=== PATIENT | male | born 1995 | race Caucasian/White ===

== ENCOUNTER 2021-02-07 10:26 | Outpatient (REF) | payer OTHER, SELFPAY ==
--- NOTE | ~2021-02-07 | XR_ITS ---
EXAMINATION: XR HIP, RIGHT CLINICAL INFORMATION: M25.551 - Pain in right hip COMPARISON: None TECHNIQUE: Two views of the right hip. FINDINGS: No fracture or dislocation. No joint narrowing or erosive change or visible chondrocalcinosis. Bony mineralization appears normal. There is no destructive process or periostitis. The right SI joint and pubis are unremarkable. XR/XR hip RT min 2V IMPRESSION: Normal right hip.
== END 2021-02-07 10:27 | disposition home or self-care (01) ==
LOC: HO.HMGCX 10:26
PROVIDERS: PCP Internal Medicine; Visit Provider Physician Assistant
DX: M25.551 Pain in right hip (principal)
CPT/HCPCS: 73502

== ENCOUNTER 2021-02-27 08:00 | Outpatient (RCR) | payer OTHER, SELFPAY ==
--- NOTE | 2021-02-16 09:57 | MHC.PT.EP ---
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 S/S consistent w/ lumbar dysfunction and pelvic asymmetry resulting in decreased tolerance of standing, sitting, and ambulating for duration, decreased tolerance for lifting heavy objects off of the ground, decreased ability to perform most of his job and traveling. Functional limitation mentioned above are secondary to global hip muscular weakness, lumbar hypermobility, postural dysfunction, LLD and pain. Patient is motivated with good rehab potential. Skilled PT will address impairments and functional limitations in order to achieve goals. Frequency and Duration: The patient will be seen 2x/wk for 5 wk Short Term Goals: initiate HEP I w/ evidence of compliance -1-2wk pt will be able to demonstrate proper standing posture using teach back method - 2wk pt will be able to ambulate/walk/stand w/ minimal to no pain. 3wk Senior Care Goals: pt will be able to lift objects off of the ground w/ minimal to no pain - 5wk pt will be able to travel or return to employment w/ minimal to no pain -5wk pt will score 4+/5 MMT for his global hip musculature - 5 wk Treatment Plan: Modalities to reduce pain, spasms and effusion. Manual therapy to restore motion and function. Therapeutic exercise to improve strength and flexibility. Neuromuscular re-education for posture and balance. Therapeutic activities to return to functional activities of daily living. Electronically signed by: Albaro King PT Please sign and return to therapist. Thank you for your referral.
--- NOTE | 2021-07-13 07:40 | MHC.PT.DC ---
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 encouraged him to call as needed if any issues arose. 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 S/S consistent w/ lumbar dysfunction and pelvic asymmetry resulting in decreased tolerance of standing, sitting, and ambulating for duration, decreased tolerance for lifting heavy objects off of the ground, decreased ability to perform most of his job and traveling. Functional limitation mentioned above are secondary to global hip muscular weakness, lumbar hypermobility, postural dysfunction, LLD and pain. Patient is motivated with good rehab potential. Skilled PT will address impairments and functional limitations in order to achieve goals. Electronically signed by: Albaro King, PT Please sign and return to therapist. Thank you for your referral.
== END 2021-04-14 08:00 | disposition home or self-care (01) ==
LOC: HO.PTCHIC 08:00
PROVIDERS: PCP Internal Medicine; Visit Provider Physician Assistant
DX: M51.9 Unspecified thoracic, thoracolumbar and lumbosacral intervertebral disc disorder (principal); M70.60 Trochanteric bursitis, unspecified hip
CPT/HCPCS: 97110; 97161

== ENCOUNTER 2021-07-04 08:24 | Outpatient (REF) | payer OTHER, SELFPAY | END 2021-07-04 08:25 | disposition home or self-care (01) | LOC: HO.LAB 08:24 | PROVIDERS: Visit Provider Internal Medicine | DX: Z13.89 Encounter for screening for other disorder (principal) | CPT/HCPCS: C9803 ==

== ENCOUNTER 2021-08-23 10:10 | Outpatient (REF) | payer OTHER, SELFPAY ==
[2021-08-23 11:59] LABS: Alanine Aminotransferase 13 U/L (0-40); Albumin Level 4.6 g/dL (3.5-5.0); Alkaline Phosphatase 57 U/L (39-117); Anion Gap 8 (12-20); Aspartate Amino Transferase 21 U/L (5-37); Bilirubin Total 0.5 mg/dL (0.0-1.0); Blood Urea Nitrogen 18 mg/dL (9-16); Calcium 9.2 mg/dL (8.4-10.2); Carbon Dioxide 31 mmol/L (22-29); Chloride 103 mmol/L (96-108); Cholesterol 129 mg/dL; Estimated Glomerular Filt Rate > 60; Glucose Fasting 87 mg/dL (60-99); HDL Cholesterol 46 mg/dL; LDL Cholesterol Calculated 74 mg/dl; Potassium 4.3 mmol/L (3.3-5.1); Sodium 138 mmol/L (135-145); Triglycerides 47 mg/dL
[2021-08-23 12:13] LABS: TSH reflex Free T4 0.83 uIU/mL (0.32-4.0)
[2021-08-23 13:51] LABS: Appearance Urine HAZY; Color Urine YELLOW; Glucose Urine UA NEG (NEG); Leukocyte Esterase Urine NEG (NEG); Nitrite Urine NEG (NEG); PH 6.5 (5.0-8.0); Urine Blood NEG (NEG); Urine Ketones NEG (NEG); Urine Protein NEG (NEG-TRACE)
== END 2021-08-23 10:11 | disposition home or self-care (01) ==
LOC: HO.HMGCLDS 10:10
PROVIDERS: Visit Provider Nurse Practitioner Family
DX: Z00.00 Encounter for general adult medical examination without abnormal findings (principal)
CPT/HCPCS: 36415; 80053; 80061; 81003; 84443

== ENCOUNTER 2021-08-27 09:19 | Outpatient (REF) | payer OTHER, SELFPAY ==
--- NOTE | ~2021-08-27 | XR_ITS ---
EXAMINATION: XR LUMBOSACRAL SPINE CLINICAL INFORMATION: Right hip pain. COMPARISON: None TECHNIQUE: Three views of the lumbosacral spine. FINDINGS: The vertebral bodies and posterior elements are normal. The disc spaces are preserved and the vertebral alignment is normal. The paraspinal soft tissues are normal. XR/XR lumbar spine 2-3V IMPRESSION: Unremarkable examination.
== END 2021-08-27 09:20 | disposition home or self-care (01) ==
LOC: HO.HMGCX 09:19
PROVIDERS: PCP Nurse Practitioner Family; Visit Provider Nurse Practitioner Family
DX: M25.551 Pain in right hip (principal); M47.816 Spondylosis without myelopathy or radiculopathy, lumbar region
CPT/HCPCS: 72100

== ENCOUNTER 2021-09-06 09:00 | Outpatient (RCR) | payer OTHER, SELFPAY ==
--- NOTE | 2021-06-14 10:14 | MHC.PT.EP ---
[facility] [place] Office [place] Office [address] [phone] F: [phone] F: [phone] F: [phone] F: [phone] Physical Therapy Plan of Care Date of Evaluation: Date of Surgery: n/a Diagnosis: spondylosis lumbar spine. Assessment: Patient is a 25 year old R handed male who presents with s/s consistent with spondylosis of lumbar spine. 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 Patient past medical history is fairly unremarkable. Current impairments include pain, posture, ROM, strength, activity tolerance and functional mobility. Functional limitations include decreased ability to stand, walk, run, lift, carry. Patient is motivated with good rehab potential. Skilled PT will address impairments and functional limitations in order to achieve goals. Frequency and Duration: The patient will be seen 2x/week for 5 weeks Short Term Goals: I with HEP -2 weeks symmetrical hip flex/HS flexibility - 3 weeks Skein Bleacher Goals: hip abd/ext strength 4+/5 grossly - 5 weeks OSwestry 10% or less - 5 weeks lumbar AROM 100% and pain free - 5 weeks pain free daily activities - 5 weeks Treatment Plan: Modalities to reduce pain, spasms and effusion. Manual therapy to restore motion and function. Therapeutic exercise to improve strength and flexibility. Neuromuscular re-education for posture and balance. Therapeutic activities to return to functional activities of daily living. Electronically signed by: Albaro King, PT Please sign and return to therapist. Thank you for your referral.
--- NOTE | 2021-09-06 16:31 | MHC.PT.DC ---
[facility] [place] Office [place] Office [place] Office [address] [phone] F: [phone] F: [phone] F: [phone] F: [phone] Physical Therapy Discharge Report Diagnosis: spondylosis lumbar spine. Date of Surgery: n/a Date of Evaluation: 06/13/21 Date of Discharge: 09/06/21 Treatments to Date: 12 Cancellations to Date: 0 No Shows to Date: 0 Discharge Status: Independent with HEP Recommend MD Follow-up Discharge Summary: Albaro has been an active and motivated participant in his therapy in and out of the clinic. He has been instructed in and is independent with a comprehensive lumbopelvic stability and mobility program and is improved of his R anterior hip pain. Albaro relates his pain to his work tasks and specifically his duty gear; he is able to progress to higher level stability and dynamic activities in the clinic however he regresses significantly after he performs his job tasks and wears his duty gear; He has not met all of his therapeutic goals due to this constant re-irritation of his symptoms. Golden outcome measure regressed by 4% from evaluation. Electronically signed by: Robert Castro PT. Please sign and return to therapist. Thank you for your referral.
== END 2021-09-06 16:34 | disposition home or self-care (01) ==
LOC: HO.PTCHIC 09:00
PROVIDERS: PCP Internal Medicine; Visit Provider Nurse Practitioner Family
DX: M79.18 Myalgia, other site (principal); M47.816 Spondylosis without myelopathy or radiculopathy, lumbar region
CPT/HCPCS: 97014; 97110; 97140; 97162; 97530

== ENCOUNTER → 2022-05-27 10:49 | Outpatient (BNVA) | payer OTHER, SELFPAY | PROVIDERS: PCP Nurse Practitioner Family; Visit Provider Orthopaedic Surgery | DX: S73.191A Other sprain of right hip, initial encounter (principal); M25.551 Pain in right hip | CPT/HCPCS: 99202 ==

== ENCOUNTER 2022-07-05 09:00 | Outpatient (RCR) | payer OTHER, SELFPAY ==
--- NOTE | 2022-04-18 18:02 | MHC.PT.EP ---
[facility] [place] Office [place] Office [place] Office [address] [phone] F: [phone] F: [phone] F: [phone] F: [phone] Physical Therapy Plan of Care Date of Evaluation: Date of Surgery: Diagnosis: R hip pain. 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 Pt is deemed an appropriate candidate to receive skilled PT in order to address her physical limitations to improve her functional ability. Frequency and Duration: The patient will be seen 2 x / wk x 5 wks. Short Term Goals: Initiate HEP. Improve baseline pain to < 4/10, initial 7/10. Career Technical Counselor Goals: I with home program. Pt will be able to walk 1 mile with at most a little bit of difficulty; initial: quite a bit of difficulty. Pt will be able to ascend and descend 1 flight of stairs with managed symptoms; initial: quite a bit of difficulty. Improve R his ER MMT by at least 1/2 MMT grade: initial: 4/5 and painful. Ambulates with symmetrical gait. Initial: decreased R hip extension at terminal stance, decreased L stp length. Treatment Plan: Modalities to reduce pain, spasms and effusion. Manual therapy to restore motion and function. Therapeutic exercise to improve strength and flexibility. Neuromuscular re-education for posture and balance. Therapeutic activities to return to functional activities of daily living. Electronically signed by: Robert Castro PT. Please sign and return to therapist. Thank you for your referral.
--- NOTE | 2022-07-05 12:52 | MHC.PT.DC ---
[facility] [place] Office [place] Office [place] Office [address] [phone] F: [phone] F: [phone] F: [phone] F: [phone] Physical Therapy Discharge Report Diagnosis: R hip pain. Date of Surgery: Date of Evaluation: 04/18/22 Date of Discharge: 07/05/22 Treatments to Date: 15 Cancellations to Date: No Shows to Date: Discharge Status: Achieved Goals Improved Function Independent with HEP Recommend MD Follow-up Discharge Summary: Albaro presents today for his discharge visit. He has been an active and motivated participant in his therapy in and out of the clinic and is in agreement with DC at this time as he has met his therapeutic goals and is I with a comprehensive home program for hip and lumbar strengthening and mobility. NOTE: Albaro presented initially to PT with R hip pain and LBP which limited his tolerance. Through his management he was granted work restrictions one of which was permission to remove his duty belt and vest which he reports exacerbates his symptoms; this greatly improved his LBP and accounts for some of his functional improvements. Though his hip strength has improved and he has met his reasonable therapeutic goals for this point of care he does persist with R hip pain which he continues to report limited tolerance for standing, and sitting and walking for duration, engaging in intimate relations, as well as age appropriate exercise and recreation. LEFI outcome measure improved from to 49. Electronically signed by: Robert Castro PT. Please sign and return to therapist. Thank you for your referral.
== END 2022-07-05 12:51 | disposition home or self-care (01) ==
LOC: HO.PTCHIC 09:00
PROVIDERS: PCP Nurse Practitioner Family; Visit Provider Nurse Practitioner Family
DX: M25.551 Pain in right hip (principal)
CPT/HCPCS: 97110; 97161; 97530

== ENCOUNTER 2022-07-11 13:14 | Outpatient (REF) | payer OTHER, SELFPAY ==
--- NOTE | ~2022-07-11 | MR_ITS ---
EXAMINATION: MR HIP WITH CONTRAST, RIGHT CLINICAL INFORMATION: Right hip pain, clicking. Patient reports symptoms for one year. Patient reports no prior right hip surgery. COMPARISON: X-ray 02/07/2021. Outside MRI images 02/13/2022. TECHNIQUE: MRI of the right hip was performed after the intra-articular administration of a dilute gadolinium-containing solution on a high-field scanner. FINDINGS: BONE/JOINTS: No evidence of acute fracture, avascular necrosis or stress reaction. No significant arthropathy seen. Ligamentum teres appears unremarkable. No cystic foci or bony hypertrophy in the anterior femoral head and neck junction. Alpha angle measures 46 degrees. Acetabular depth is normal. LABRUM: There is T2 bright signal/contrast extending through the base of the anterosuperior labrum, images 5:9, 9:6, 7:8. Findings compatible with a tear. This correlates with the abnormal signal seen on the previous MRI. There is increased signal, ill-definition of the anterosuperior labrum otherwise, as seen on images 5:11-13, which could represent degeneration, fraying/tear, and contrast imbibing into the substance of the labrum. MUSCLES/TENDONS: There is increased signal in the rectus femoris muscle, iliopsoas muscle tracking along the iliopsoas tendon, likely related to the arthrogram procedure. The tendons otherwise appear intact. No evidence of significant muscle atrophy, strain or tear. No trochanteric bursitis. MISCELLANEOUS: Subcentimeter right groin lymph nodes. No acute findings in the intrapelvic structures. MR/MR hip RT w con IMPRESSION: 1. Abnormal findings indicative of an anterosuperior labral tear. Abnormal findings in the subjacent anterosuperior labrum, could reflect degeneration, fraying/tear, as detailed above. 2. Signal changes in the anterior muscles of the right hip, probably related to the arthrogram procedure.
--- NOTE | ~2022-07-11 | FL_ITS ---
EXAMINATION: FL FLUOROSCOPIC GUIDED HIP INJECTION, RIGHT CLINICAL INFORMATION: Right hip pain. Clicking. COMPARISON: Radiographs right hip 02/07/2021. TECHNIQUE: Proper informed consent is obtained from the patient after discussion of the procedure, potential risks and complications, and alternatives including declining the procedure today. Patient was given an opportunity for questions. The patient appeared to understand. The patient consented to the procedure and signed the consent form. Timeout performed. Skin is prepped and draped. Local anesthesia is provided using 6 mL lidocaine 1%. Under fluoroscopic guidance, a 22-gauge needle was positioned from an anterior approach. Initial contrast injection showed communication with the iliopsoas tendon sheath. Needle was repositioned and repeat injection showed intracapsular distribution of contrast. Subsequently, the patient received an injection consisting of: -1 mL DepoMedrol 40 mg -3 mL Lidocaine 1% -3 mL Marcaine 0.25% -3 mL Gadovist 0.2% The patient tolerated the procedure well and had no immediate complication. Sterile dressing was placed and home instructions reviewed with the patient. MRI right hip performed following the arthrogram, separate report Fluoroscopy time: 1.0 minutes DAP: 5.713 Gycm2 Images: 6 FL/FL arthrogram hip RT IMPRESSION: -Status post fluoroscopic guided right hip injection of steroid and anesthetic.
== END 2022-07-11 13:15 | disposition home or self-care (01) ==
LOC: HO.XRAY 13:14
PROVIDERS: PCP Nurse Practitioner Family; Visit Provider Orthopaedic Surgery
DX: S73.191A Other sprain of right hip, initial encounter (principal)
CPT/HCPCS: 27093; 73525; 73722; A9585

== ENCOUNTER → 2022-07-19 10:17 | Outpatient (BNVA) | payer OTHER, SELFPAY | PROVIDERS: PCP Nurse Practitioner Family; Visit Provider Orthopaedic Surgery | DX: S73.191D Other sprain of right hip, subsequent encounter (principal) | CPT/HCPCS: 99212 ==

== ENCOUNTER 2023-02-27 12:48 | Outpatient (AMB) | payer OTHER, SELFPAY ==
[2023-02-27 13:03] VITALS: BP 100/68; PULSE 62; O2SAT 99; BMI 24.3
--- NOTE | 2023-02-27 13:03 | A.OFFPC_ITS ---
Vital Signs 02/27/23 13:03 Height 5 ft 6 in Weight 150 lb 6 oz BMI 24.3 BP 100/68 Blood Pressure Location Rt brachial Position Sitting Pulse 62 Pulse Source Pulse Oximeter Pulse Oximetry (%) 99 Oxygen Delivery Method Room Air Intake Visit Reasons: 3m follow up Allergies Seasonal Allergies Allergy (Mild, Verified 02/27/23 13:05) watery eyes, sneezing Medication List - Last Reconciled 02/27/23 by REJI Martin cyclobenzaprine 10 mg PO BID PRN 15 days diclofenac sodium 50 mg PO Q12H PRN 30 days naproxen (EC-Naprosyn) 500 mg PO BID Tobacco use date assessed: 02/27/23 Dental Screening Dental Screen Date: 02/27/23 Did you have a dental visit in the last 12 months?: Yes Did you have a dental problem in the last 6 months where you did not have access to dental care?: No Was dental information given to patient?: Patient has dentist HPI 3m follow up HPI Details Right hip pain: Pt is following up with ortho due to labral tear and acetabular impigement of right hip. 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 Pt is planning to try swimming and biking. Pt has an upcoming appointment with speech and hearing due to tinnitus and hearing loss. Pt also c/o bilat shoulder pain, right>left. Will order XRs. Denies fever, chills, and dizziness. PFSH Family History Father Substance use disorder Maternal Grandfather Substance use disorder Maternal Grandmother Substance use disorder Maternal Aunt Substance use disorder Maternal Uncle Substance use disorder Social History Housing: Apartment Patient Tobacco Use Status: Never used Tobacco e-Cigarette/Vaping Use: Never Used Second Hand Smoke Exposure: Yes service: Yes Current occupational status: employed Current occupation: [employer] Current occupational exposures/hazards: Yes Cognitive needs: No Hearing needs: No Vision needs: No Questionnaire Thrive Questionnaire Date Thrive assessed: 11/27/22 STORM-7 AMB Questionnaire STORM-7 Date STORM - 7 assessed: 11/27/22 Source: Developed by Drs. Pan Cassidy, Oralia Hawthorne, Tad Izaguirre and colleagues, with an educational wing from [employer]. Review of Systems Const Reports as per HPI Physical exam (Primary Care) Vital Signs: Last Vital Signs Pulse 62 02/27/23 13:03 BP 100/68 02/27/23 13:03 Pulse Ox 99 02/27/23 13:03 Oxygen Delivery Method Room Air 02/27/23 13:03 BMI result Body Mass Index 24.3 Tobacco/Smoking Status: Tobacco use Status Tobacco use date assessed 02/27/23 02/27/23 13:07 Patient Tobacco Use Status Never used Tobacco 02/27/23 13:07 e-Cigarette/Vaping Use Never Used 02/27/23 13:07 Thrive Assessment: Date of Thrive Assessment Date Thrive assessed 11/27/22 02/27/23 13:07 Const General: cooperative Orientation/consciousness: patient oriented x3 Resp Effort & Inspection: normal respiratory effort Auscultation: clear to auscultation bilaterally Cardio Rate: regular rate Rhythm: regular rhythm Heart sounds: S1 normal heart sound present and S2 normal heart sound present Neuro General: patient oriented x3 Extrem Other: bilat shoulders: - taylor, - neers, - jobes Psych Appearance: grossly normal Mental Status: mental status grossly normal Speech and movement: Normal speech and movement present Affect: normal affect Attitude: cooperative Thought process: Normal thought process present Thought content: Normal thought content present Insight: Good insight present (Psych) Judgement: Good judgement present (Psych) Assessment and Plan Assessment & Plan (1) Bilateral shoulder pain: Code(s): M25.511 - Pain in right shoulder; M25.512 - Pain in left shoulder (2) Labral tear of right hip joint: Code(s): S73.191A - Other sprain of right hip, initial encounter (3) Femoral acetabular impingement: Code(s): M25.859 - Other specified joint disorders, unspecified hip (4) Right hip pain: Code(s): M25.551 - Pain in right hip (5) Tinnitus: Code(s): H93.19 - Tinnitus, unspecified ear (6) Hearing loss: Code(s): H91.90 - Unspecified hearing loss, unspecified ear Plan The patient agreed to the use of a medical support specialist for this encounter. Scribed for GIANFRANCO Bowden-WENDY by Zamzam Faith medical support specialist, on 02/27/2023 at 13:10 EST. Orders: Orders XR shoulder LT min 2V Today M25.511 - Pain in right shoulder, M25.512 - Pain in left shoulder XR shoulder RT min 2V Today M25.511 - Pain in right shoulder, M25.512 - Pain in left shoulder Coding Level of Care Code Est Pt Level 3 (15917) Diagnoses Bilateral shoulder pain M25.511; M25.512 Labral tear of right hip joint S73.191A Femoral acetabular impingement M25.859 Right hip pain M25.551 Tinnitus H93.19 Hearing loss H91.90
== END 2023-02-27 13:28 | disposition home or self-care (01) ==
PROVIDERS: PCP Nurse Practitioner Family; Visit Provider Nurse Practitioner Family
DX: M25.511 Pain in right shoulder (principal); M25.512 Pain in left shoulder; S73.191A Other sprain of right hip, initial encounter; M25.859 Other specified joint disorders, unspecified hip; M25.551 Pain in right hip; H93.19 Tinnitus, unspecified ear; H91.90 Unspecified hearing loss, unspecified ear
CPT/HCPCS: 99213

== ENCOUNTER 2023-02-27 13:29 | Outpatient (REF) | payer OTHER, SELFPAY ==
--- NOTE | ~2023-02-27 | XR_ITS ---
EXAMINATION: XR SHOULDER, BILATERAL CLINICAL INDICATION: Pain. COMPARISON: None available. TECHNIQUE: 4 views left shoulder. 4 views right shoulder. FINDINGS: LEFT SHOULDER: 4 views of left shoulder do not demonstrate an acute finding. There is no fracture or dislocation. No bony erosion or osteopenia. No significant degeneration is seen. RIGHT SHOULDER: 4 views of right shoulder again show no suspicious finding. No fracture or dislocation. No bony erosion or osteopenia. No degeneration. XR/XR shoulder RT min 2V IMPRESSION: No suspicious bony finding in the shoulders.
--- NOTE | ~2023-02-27 | XR_ITS ---
EXAMINATION: XR SHOULDER, BILATERAL CLINICAL INDICATION: Pain. COMPARISON: None available. TECHNIQUE: 4 views left shoulder. 4 views right shoulder. FINDINGS: LEFT SHOULDER: 4 views of left shoulder do not demonstrate an acute finding. There is no fracture or dislocation. No bony erosion or osteopenia. No significant degeneration is seen. RIGHT SHOULDER: 4 views of right shoulder again show no suspicious finding. No fracture or dislocation. No bony erosion or osteopenia. No degeneration. XR/XR shoulder LT min 2V IMPRESSION: No suspicious bony finding in the shoulders.
[2023-02-27 15:53] LABS: MANUAL DIFF FLAG NO
[2023-02-27 16:21] LABS: Basophils Absolute Auto 0.1 X10*3/uL (0.0-0.2); Basophils Percent Auto 1.1 % (0-2); Eosinophils Absolute Auto 0.1 X10*3/uL (0.0-0.4); Eosinophils Percent Auto 1.1 % (0-4); Hematocrit 44.3 % (42.0-52.0); Hemoglobin 15.3 g/dl (14.0-18.0); Imm Gran Abs Auto 0.01 X10*3/uL (0.00-0.03); Imm Gran Pct Auto 0.2 % (0.0-0.4); Lymphocytes Absolute Auto 2.6 X10*3/uL (1.2-4.9); Lymphocytes Percent Auto 39.3 % (20-40); Mean Corpuscular HGB Conc 34.5 g/dl (31.0-36.0); Mean Corpuscular Hemoglobin 30.4 pg (27.0-33.0); Mean Corpuscular Volume 88.1 fL (80.0-98.0); Mean Platelet Volume 9.8 fL (9.4-12.4); Monocytes Absolute Auto 0.5 X10*3/uL (0.1-1.2); Monocytes Percent Auto 7.9 % (2-11); Neutrophils Absolute Auto 3.3 x10*3/uL (2.0-8.3); Neutrophils Percent Auto 50.4 % (45-73); Platelet Count 297 X10*3/uL (160-400); Red Blood Count 5.03 X10*6/uL (4.60-5.80); Red Cell Distribution Width 12.2 % (11.0-16.0); White Blood Count 6.5 X10*3/uL (4.8-10.8)
[2023-02-27 16:23] LABS: Alanine Aminotransferase 9 U/L (0-40); Albumin Level 4.7 g/dL (3.5-5.0); Alkaline Phosphatase 65 U/L (39-117); Anion Gap 11 (12-20); Aspartate Amino Transferase 17 U/L (5-37); Bilirubin Total 0.5 mg/dL (0.0-1.0); Blood Urea Nitrogen 13 mg/dL (9-16); Calcium 9.6 mg/dL (8.4-10.2); Carbon Dioxide 29 mmol/L (22-29); Chloride 105 mmol/L (96-108); Cholesterol 160 mg/dL (<200); Estimated Glomerular Filt Rate > 60; Glucose Fasting 85 mg/dL (60-99); HDL Cholesterol 43 mg/dL (>40); LDL Cholesterol Calculated 103 mg/dL (<100); Potassium 4.1 mmol/L (3.3-5.1); Sodium 141 mmol/L (135-145); Total Protein 7.4 g/dL (6.5-8.0); Triglycerides 70 mg/dL (<150)
[2023-02-27 16:27] LABS: Appearance Urine Clear; Color Urine Yellow; Glucose Urine UA Negative (Negative); Leukocyte Esterase Urine Negative (Negative); Nitrite Urine Negative (Negative); PH 6.5 (5.0-9.0); Specific Gravity - Urine 1.025 (1.005-1.025); Urine Blood Negative (Negative); Urine Ketones Negative (Negative); Urine Protein Negative (Neg-Trace)
[2023-02-27 16:40] LABS: TSH reflex Free T4 0.82 uIU/mL (0.32-4.0)
== END 2023-02-27 13:30 | disposition home or self-care (01) ==
LOC: HO.HMGCX 13:29
PROVIDERS: PCP Nurse Practitioner Family; Visit Provider Nurse Practitioner Family
DX: M25.511 Pain in right shoulder (principal); M25.512 Pain in left shoulder; Z00.00 Encounter for general adult medical examination without abnormal findings
CPT/HCPCS: 36415; 73030; 80053; 80061; 81003; 84443; 85025

== ENCOUNTER 2023-03-12 10:17 | Outpatient (REF) | payer OTHER, SELFPAY | END 2023-03-12 10:18 | disposition home or self-care (01) | LOC: HO.SH 10:17 | PROVIDERS: Visit Provider Nurse Practitioner Family | DX: Z01.118 Encounter for examination of ears and hearing with other abnormal findings (principal); H93.293 Other abnormal auditory perceptions, bilateral | CPT/HCPCS: 92557; 92567; 92588 ==

== ENCOUNTER 2023-07-28 15:50 | Outpatient (AMB) | payer OTHER, SELFPAY ==
--- NOTE | 2023-07-28 15:57 | MHC.PC.OV ---
Vital Signs 07/28/23 15:58 Height 5 ft 6 in Weight 145 lb BMI 23.4 BP 112/70 Blood Pressure Location Lt brachial Position Sitting Pulse 65 Pulse Source Pulse Oximeter Pulse Oximetry (%) 97 Oxygen Delivery Method Room Air Intake Visit Reasons: 3 mth follow up Intake Note: Pt is here to follow for shoulder pain Allergies Seasonal Allergies Allergy (Mild, Verified 07/28/23 16:00) watery eyes, sneezing Tobacco use date assessed: 07/28/23 Dental Screening Dental Screen Date: 07/28/23 Did you have a dental visit in the last 12 months?: No Did you have a dental problem in the last 6 months where you did not have access to dental care?: No Was dental information given to patient?: Patient has dentist HPI 3 mth follow up HPI Details ? IBS-C+D. Reports a few months ago developing diarrhea after eating. Pt further reported cramping, after eating, then immediately run to the bathroom. He then reports his symptoms switched to more of a constipation. ? IBS-C+D, will have him start citrucel. Pt reports less frequent cramps after eating, but now still more constipated. Pt reports he usually has a BM everyday. Denies any fevers, chills, N/V. #2 in 2019, pt reports he was stationed in [facility], developed ? jock itch after wearing heavy clothing in hot temperatures. Pt reports trying creams, was STD tested, nothing was found. He reports he still gets this inguinal rash. Will send ketoconazole. PFSH Family History Father Substance use disorder Maternal Grandfather Substance use disorder Maternal Grandmother Substance use disorder Maternal Aunt Substance use disorder Maternal Uncle Substance use disorder Social History Housing: Apartment Patient Tobacco Use Status: Never used Tobacco e-Cigarette/Vaping Use: Never Used Second Hand Smoke Exposure: Yes service: Yes Current occupational status: employed Current occupation: [employer] Current occupational exposures/hazards: Yes Cognitive needs: No Hearing needs: No Vision needs: No Questionnaire Thrive Questionnaire Date Thrive assessed: 11/27/22 STORM-7 AMB Questionnaire STORM-7 Date STORM - 7 assessed: 11/27/22 Source: Developed by Drs. Pan Cassidy, Oralia Hawthorne, Tad Izaguirre and colleagues, with an educational wing from [email or web address]. Review of Systems Const Reports as per HPI Physical exam (Primary Care) Vital Signs: Last Vital Signs Pulse 65 07/28/23 15:58 BP 112/70 07/28/23 15:58 Pulse Ox 97 07/28/23 15:58 Oxygen Delivery Method Room Air 07/28/23 15:58 BMI result Body Mass Index 23.4 Tobacco/Smoking Status: Tobacco use Status Tobacco use date assessed 07/28/23 07/28/23 16:02 Patient Tobacco Use Status Never used Tobacco 07/28/23 15:58 e-Cigarette/Vaping Use Never Used 07/28/23 15:58 Thrive Assessment: Date of Thrive Assessment Date Thrive assessed 11/27/22 07/28/23 15:58 Const General: cooperative Orientation/consciousness: patient oriented x3 Resp Effort & Inspection: normal respiratory effort Auscultation: clear to auscultation bilaterally Cardio Rate: regular rate Rhythm: regular rhythm Heart sounds: S1 normal heart sound present and S2 normal heart sound present GI Palpation (GI): Soft to palpation, nontender, no guarding and not rigid Auscultation: normal bowel sounds Skin Other: bilat inguinal region with macular erythema, tinea Neuro General: patient oriented x3 Psych Appearance: grossly normal Mental Status: mental status grossly normal Speech and movement: Normal speech and movement present Affect: normal affect Attitude: cooperative Thought process: Normal thought process present Thought content: Normal thought content present Insight: Good insight present (Psych) Judgement: Good judgement present (Psych) Assessment and Plan Assessment & Plan (1) Diarrhea: Code(s): R19.7 - Diarrhea, unspecified Plan: Recommended citrucel (2) Constipation: Code(s): K59.00 - Constipation, unspecified Plan: Recommended citrucel (3) Tinea cruris: Code(s): B35.6 - Tinea cruris Plan: Ketoconazole sent Plan The patient agreed to the use of a medical scientific officer for this encounter. Scribed for REJI Bowden by aminata Preciado scribe, on 07/28/2023 at 16:15 EST. Medications: New ketoconazole 2% 1 appl topical DAILY 60 grams 0RF Coding Level of Care Code Est Pt Level 3 (11931) Diagnoses Diarrhea R19.7 Constipation K59.00 Tinea cruris B35.6
[2023-07-28 15:58] VITALS: BP 112/70; PULSE 65; O2SAT 97; BMI 23.4
== END 2023-07-28 16:37 | disposition home or self-care (01) ==
PROVIDERS: PCP Nurse Practitioner Family; Visit Provider Nurse Practitioner Family
DX: R19.7 Diarrhea, unspecified (principal); K59.00 Constipation, unspecified; B35.6 Tinea cruris
CPT/HCPCS: 99213

== ENCOUNTER 2023-08-27 09:16 | Outpatient (AMB) | payer OTHER, SELFPAY ==
[2023-08-27 09:42] VITALS: BP 120/70; PULSE 70; TEMP 36.3; O2SAT 98; BMI 24.4
--- NOTE | 2023-08-27 09:42 | MHC.OFFWIV ---
Intake Vital Signs 08/27/23 09:42 Height 5 ft 6 in Weight 151 lb BMI 24.4 BP 120/70 Blood Pressure Location Lt brachial Position Sitting Pulse 70 Pulse Source Pulse Oximeter Temp 97.4 F Temp Source Temporal Artery Scan Pulse Oximetry (%) 98 Oxygen Delivery Method Room Air Intake Visit Reasons: EP WC strained neck @ work Needs note Intake Note: pt is here today for strained neck started today Patient Tobacco Use Status: Never used Tobacco Allergies Seasonal Allergies Allergy (Mild, Verified 08/27/23 09:42) watery eyes, sneezing Do you need a note to return to daycare/school/sports/work: Yes HPI HPI Comments History of Present Illness Details He presents with workmans comp injury He works at [employer] He said he has had an ongoing neck issue since 2020 and has not been formally seen for it he will occasionally tweek his neck and it occurs on both sides While at work today he was wearing his work hat and went to smooth over hat and felt a pulled muscle in the R side of his neck He said pain 10/10 sharp with movement Using hot compress, no medicine yet for it. No headaches, dizziness, vision changes, cold symptoms, CP or SOB PFSH Family History Father Substance use disorder Maternal Grandfather Substance use disorder Maternal Grandmother Substance use disorder Maternal Aunt Substance use disorder Maternal Uncle Substance use disorder Social History Housing: Apartment Patient Tobacco Use Status: Never used Tobacco e-Cigarette/Vaping Use: Never Used Second Hand Smoke Exposure: Yes service: Yes Current occupational status: employed Current occupation: [employer] Current occupational exposures/hazards: Yes Cognitive needs: No Hearing needs: No Vision needs: No Review of Systems Const Denies chills, Denies fever(s) and Denies headache(s) Eyes Denies blurry vision ENT Denies dizziness, Denies otalgia, Denies headache(s), Denies nasal congestion, Reports neck pain and Denies sore throat Card Denies chest pain Resp Denies cough Musc Reports neck pain Neuro Denies dizziness, Denies headache(s), Denies lack of coordination and Denies focal weakness Physical Exam Vital Signs: Last Vital Signs Temp 97.4 F 08/27/23 09:42 Pulse 70 08/27/23 09:42 BP 120/70 08/27/23 09:42 Pulse Ox 98 08/27/23 09:42 Oxygen Delivery Method Room Air 08/27/23 09:42 BMI result Body Mass Index 24.4 General: Non-toxic, NAD. Speaking full sentences. Skin: Warm dry throughout. No neck edema, rashes or erythema Eye: EOMI HENT: Airway patent. Uvula midline. No pharyngeal erythema or edema. No MANAGER STATE. Bilateral canals clear. TM non-erythematous, non-bulging. No TM perforation or hemotympanum noted. Neck: Tenderness to palpation R trapezius muscle with minimal L trapezius tenderness to palpation. Respiratory: CTA bilaterally. No wheezes, rales or rhonchi Cardiac: RRR. No murmur. R radial pulse intact MSK: Full ROM extremities. No tenderness to palpation of shoulder joint or RUE. 5/5 platinum and palladium kettle tender strength R hand Neurology: A/O. No aphasia or facial droop. Gait without abnormality Psych: Good mood and affect Assessment & Plan Assessment & Plan (1) Neck pain: Code(s): M54.2 - Cervicalgia Plan: Patient seen and evaluated. No trauma or indication of xray cold compress x 24 hours then switch to heat muscle relaxant; can cause lethargy. No alcohol or driving F/U with PT Call with concerns Patient gave verbal understanding and had no additional questions or concerns at time of discharge All questions answered Medications: New cyclobenzaprine 10 mg PO TID PRN 14 tabs 0RF muscle spasm Coding Level of Care Code Est Pt Level 3 (40149) Diagnoses Neck pain M54.2
== END 2023-08-27 10:11 | disposition home or self-care (01) ==
PROVIDERS: PCP Nurse Practitioner Family; Visit Provider Physician Assistant
DX: M54.2 Cervicalgia (principal)
CPT/HCPCS: 99213

== ENCOUNTER 2023-09-29 08:55 | Outpatient (AMB) | payer OTHER, SELFPAY ==
[2023-09-29 09:02] VITALS: BP 110/68; PULSE 76; TEMP 36.9; O2SAT 97; BMI 23.7
--- NOTE | 2023-09-29 09:02 | MHC.OFFWIV ---
Intake Vital Signs 09/29/23 09:02 Height 5 ft 6 in Weight 147 lb BMI 23.7 BP 110/68 Blood Pressure Location Lt brachial Position Sitting Pulse 76 Pulse Source Pulse Oximeter Temp 98.5 F Temp Source Oral Pulse Oximetry (%) 97 Oxygen Delivery Method Room Air Intake Visit Reasons: EP congestion cough sore throat Intake Note: pt is here for congestion cough sore throat started Friday night he also states he has some sinus pressure as well. Patient Tobacco Use Status: Never used Tobacco Allergies Seasonal Allergies Allergy (Mild, Verified 09/29/23 09:38) watery eyes, sneezing HPI HPI Comments History of Present Illness Details Patient presents to the walk in for 4 days cough, congestion, fatigue and 2 kids at home sick with same Denies fever, chest pain, shortness of breath, palpitations, syncope, weakness Denies headache, ear pain, sore throat. In the [employer], works as [employer] Family History Father Substance use disorder Maternal Grandfather Substance use disorder Maternal Grandmother Substance use disorder Maternal Aunt Substance use disorder Maternal Uncle Substance use disorder Social History Housing: Apartment Patient Tobacco Use Status: Never used Tobacco e-Cigarette/Vaping Use: Never Used Second Hand Smoke Exposure: Yes service: Yes Current occupational status: employed Current occupation: [employer] Current occupational exposures/hazards: Yes Cognitive needs: No Hearing needs: No Vision needs: No Review of Systems Const All systems reviewed & are unremarkable except as noted in HPI and below Physical Exam Vital Signs: Last Vital Signs Temp 98.5 F 09/29/23 09:02 Pulse 76 09/29/23 09:02 BP 110/68 09/29/23 09:02 Pulse Ox 97 09/29/23 09:02 Oxygen Delivery Method Room Air 09/29/23 09:02 BMI result Body Mass Index 23.7 General: awake, alert, oriented. Answers questions appropriately. Fully engaged in examination. Skin: warm, dry, intact HEENT: TMs intact bilaterally, no redness. Posterior pharynx without erythema or exudate. Sclera without icterus or injection. Cardiac: External chest normal in appearance. Respiratory: LSCTAB. Abdomen: without gross distension. Neurological: Oriented to person, place, time and situation. Thought process intact. Psychiatric: Appropriate mood and affect. Good judgment and insight. Results AMB Rapid Strep AMB Rapid Strep Negative Last Edit by Rose Rebolledo CMA on 09/29/23 09:51 Results Reviewed Results Reviewed: Laboratory Last Values Strep Scn Rapid Clinic Negative 09/29/23 09:50 Assessment & Plan Assessment & Plan (1) URI (upper respiratory infection): Code(s): J06.9 - Acute upper respiratory infection, unspecified Plan URI, no abx warranted. Rapid strep negative Benzonatate 100mg po bid as needed Rest, drink plenty of fluids, tylenol or motrin as needed. Work note provided Follow up with pcp or in clinic for any new or worsening symptoms. Orders: Orders AMB Rapid Strep Screen Today Basil Borden MD Z13.9 - Encounter for screening, unspecified Medications: New benzonatate 100 mg PO BID 10 days PRN 20 caps 0RF cough Latasha Maddox, DIRECTOR OF GLOBAL MARKETING, SERVICE [employer]IR[employer] Coding Level of Care Code Est Pt Level 3 (47862) Diagnoses URI (upper respiratory infection) J06.9
== END 2023-09-29 10:33 | disposition home or self-care (01) ==
PROVIDERS: PCP Nurse Practitioner Family; Visit Provider Registered Nurse Emergency
DX: J02.9 Acute pharyngitis, unspecified (principal)
CPT/HCPCS: 87880; 99213

== ENCOUNTER 2023-11-18 08:40 | Outpatient (AMB) | payer OTHER, SELFPAY ==
[2023-11-18 09:11] VITALS: BP 120/68; PULSE 71; TEMP 36.2; O2SAT 98; BMI 24.5
--- NOTE | 2023-11-18 09:11 | AM.OFFWIN_ITS ---
Intake Vital Signs 11/18/23 09:11 Height 5 ft 6 in Weight 152 lb BMI 24.5 BP 120/68 Blood Pressure Location Lt brachial Position Sitting Pulse 71 Pulse Source Pulse Oximeter Temp 97.2 F Temp Source Temporal Artery Scan Pulse Oximetry (%) 98 Oxygen Delivery Method Room Air Intake Visit Reasons: EP stomach Bug Intake Note: pt is here today for stomach bug started friday Patient Tobacco Use Status: Never used Tobacco Allergies Seasonal Allergies Allergy (Mild, Verified 11/18/23 09:47) watery eyes, sneezing Medication List - Last Reconciled 11/18/23 by Basil Borden MD cyclobenzaprine 10 mg PO BID PRN 15 days cyclobenzaprine 10 mg PO TID PRN diclofenac sodium 50 mg PO Q12H PRN 30 days ketoconazole 2% 1 appl topical DAILY naproxen (EC-Naprosyn) 500 mg PO BID Do you need a note to return to daycare/school/sports/work: Yes HPI EP stomach Bug HPI Details 27 yr old male presents to the office fo r a sick visit. Patient is active . Reporting symptoms of nausea, vomiting and diarrhea for the past few days. Travel to [place]. Young daughter is sick with similar complaints. No fevers or chills. Appetite is reduced. PFSH Family History Father Substance use disorder Maternal Grandfather Substance use disorder Maternal Grandmother Substance use disorder Maternal Aunt Substance use disorder Maternal Uncle Substance use disorder Social History Housing: Apartment Patient Tobacco Use Status: Never used Tobacco e-Cigarette/Vaping Use: Never Used Second Hand Smoke Exposure: Yes service: Yes Current occupational status: employed Current occupation: [employer] Current occupational exposures/hazards: Yes Cognitive needs: No Hearing needs: No Vision needs: No Physical Exam Vital Signs: Last Vital Signs Temp 97.2 F 11/18/23 09:11 Pulse 71 11/18/23 09:11 BP 120/68 11/18/23 09:11 Pulse Ox 98 11/18/23 09:11 Oxygen Delivery Method Room Air 11/18/23 09:11 BMI result Body Mass Index 24.5 Const General: cooperative and healthy appearing Nutritional Appearance: well nourished Orientation/consciousness: patient oriented x3 Limitations: no limitations HEENT Head: Yes normal to inspection Eyes General: appearance normal, both eyes and all related structures Neck Neck: Yes normal visual inspection Chest Chest palpation & inspection: normal palpation of entire chest wall Resp Effort & Inspection: normal respiratory effort Neuro General: patient oriented x3 Assessment & Plan Assessment & Plan (1) Gastroenteritis: Code(s): K52.9 - Noninfective gastroenteritis and colitis, unspecified Plan: Self limiting illness. NFW given. Increase fluid intake. Coding Level of Care Code Est Pt Level 3 (33413) Diagnoses Gastroenteritis K52.9
== END 2023-11-18 10:16 | disposition home or self-care (01) ==
PROVIDERS: PCP Nurse Practitioner Family; Visit Provider Internal Medicine
DX: K52.9 Noninfective gastroenteritis and colitis, unspecified (principal)
CPT/HCPCS: 99213

== ENCOUNTER 2024-01-19 08:16 | Outpatient (AMB) | payer OTHER, SELFPAY ==
--- NOTE | 2024-01-19 08:21 | AM.OFFWIN_ITS ---
Intake Vital Signs 01/19/24 08:27 Height 5 ft 6 in Weight 148 lb BMI 23.9 BP 112/70 Blood Pressure Location Rt brachial Position Sitting Pulse 79 Pulse Source Pulse Oximeter Temp 98.3 F Temp Source Oral Pulse Oximetry (%) 98 Oxygen Delivery Method Room Air Intake Visit Reasons: Flu like symptoms-work note for Intake Note: pt c/o productive cough, congestion, sinus pressure, fever, headache. Started Friday afternoon Patient Tobacco Use Status: Never used Tobacco Allergies Seasonal Allergies Allergy (Mild, Verified 01/19/24 08:26) watery eyes, sneezing Do you need a note to return to daycare/school/sports/work: Yes HPI HPI Comments History of Present Illness Details Patient presents to the walk in for 2 days cough, sinus congestion Denies chest pain, shortness of breath, palpitations, syncope, weakness Denies headache, ear pain. Works in the . Out sick from work, requesting work note [facility] Medical History (Updated 12/03/23 @ 12:42 by Jayme Burrell [facility]) Plantar fascial fibromatosis Family History Father Substance use disorder Maternal Grandfather Substance use disorder Maternal Grandmother Substance use disorder Maternal Aunt Substance use disorder Maternal Uncle Substance use disorder Social History Housing: Apartment Patient Tobacco Use Status: Never used Tobacco e-Cigarette/Vaping Use: Never Used Second Hand Smoke Exposure: Yes service: Yes Current occupational status: employed Current occupation: [employer] Current occupational exposures/hazards: Yes Cognitive needs: No Hearing needs: No Vision needs: No Review of Systems Const All systems reviewed & are unremarkable except as noted in HPI and below Physical Exam Vital Signs: Last Vital Signs Temp 98.3 F 01/19/24 08:27 Pulse 79 01/19/24 08:27 BP 112/70 01/19/24 08:27 Pulse Ox 98 01/19/24 08:27 Oxygen Delivery Method Room Air 01/19/24 08:27 BMI result Body Mass Index 23.9 General: awake, alert, oriented. Answers questions appropriately. Fully engaged in examination. Skin: warm, dry, intact HEENT: TMs intact bilaterally, no redness. Posterior pharynx without erythema or exudate. Sclera without icterus or injection. Cardiac: External chest normal in appearance. Respiratory: LSCTAB. Abdomen: without gross distension. Neurological: Oriented to person, place, time and situation. Thought process intact. Psychiatric: Appropriate mood and affect. Good judgment and insight. Assessment & Plan Assessment & Plan (1) URI (upper respiratory infection): Code(s): J06.9 - Acute upper respiratory infection, unspecified Plan URI, no abx warranted. Benzonatate offered, patient declines. He prefers to continue with more holistic approach to treatment of the symptoms. Rest, drink plenty of fluids, tylenol or motrin as needed. Recommend taking OTC nasal decongestants Follow up with pcp or in clinic for any new or worsening symptoms. Go to ER for shortness of breath, chest pain, palpitations, weakness, dizziness. Coding Level of Care Code Est Pt Level 3 (65659) Diagnoses URI (upper respiratory infection) J06.9
[2024-01-19 08:27] VITALS: BP 112/70; PULSE 79; TEMP 36.8; O2SAT 98; BMI 23.9
== END 2024-01-19 09:56 | disposition home or self-care (01) ==
PROVIDERS: PCP Nurse Practitioner Family; Visit Provider Registered Nurse Emergency
DX: J06.9 Acute upper respiratory infection, unspecified (principal)
CPT/HCPCS: 99213

== ENCOUNTER 2024-02-17 10:24 | Outpatient (AMB) | payer OTHER, SELFPAY ==
[2024-02-17 10:29] VITALS: BP 100/52; PULSE 71; O2SAT 98; BMI 24.2
--- NOTE | 2024-02-17 10:29 | A.OFFPC_ITS ---
Vital Signs 02/17/24 10:29 Height 5 ft 6 in Weight 150 lb BMI 24.2 BP 100/52 L Blood Pressure Location Lt brachial Position Sitting Pulse 71 Pulse Source Pulse Oximeter Pulse Oximetry (%) 98 Oxygen Delivery Method Room Air Intake Visit Reasons: Follow up Allergies Seasonal Allergies Allergy (Mild, Verified 02/17/24 10:30) watery eyes, sneezing Medication List - Last Reconciled 02/17/24 by REJI Martin cyclobenzaprine 10 mg PO TID PRN diclofenac sodium 50 mg PO Q12H PRN 30 days fluoxetine 20 mg PO DAILY ketoconazole 2% 1 appl topical DAILY Tobacco use date assessed: 02/17/24 Dental Screening Dental Screen Date: 02/17/24 Did you have a dental visit in the last 12 months?: Yes Did you have a dental problem in the last 6 months where you did not have access to dental care?: No Was dental information given to patient?: Patient has dentist HPI Follow up HPI Details Pt c/o ongoing bilat hand numbness and pain. He reports pain from his MCP joints running proximally. He reports that this is intermittent and occurs more with use of hands. EMG/nerve conduction testing was ordered previously, will resubmit this. Will also order XRs of bilat hands. Denies fever, chills, and dizziness. [facility] Medical History (Updated 02/17/24 @ 10:56 by REJI Martin) Plantar fasciitis, bilateral Achilles tendinosis of both ankles Plantar fascial fibromatosis Family History Father Substance use disorder Maternal Grandfather Substance use disorder Maternal Grandmother Substance use disorder Maternal Aunt Substance use disorder Maternal Uncle Substance use disorder Social History Housing: Apartment Patient Tobacco Use Status: Never used Tobacco e-Cigarette/Vaping Use: Never Used Second Hand Smoke Exposure: Yes service: Yes Current occupational status: employed Current occupation: [employer] Current occupational exposures/hazards: Yes Cognitive needs: No Hearing needs: No Vision needs: No Questionnaire PHQ-9 Over the last 2 weeks, how often have you been bothered by any of the following problems? 1. Little interest or pleasure in doing things: nearly every day 2. Feeling down, depressed, or hopeless: nearly every day 3. Trouble falling or staying asleep, or sleeping too much: nearly every day 4. Feeling tired or having little energy: nearly every day 5. Poor appetite or overeating: more than half the days 6. Feeling bad about yourself - or that you are a failure or have let yourself or your family down: not at all 7. Trouble concentrating on things, such as reading the newspaper or watching television: several days 8. Moving or speaking so slowly that other people could have noticed. Or the opposite - being so fidgety or restless that you have been moving around a lot more than usual: several days 9. Thoughts that you would be better off or of hurting yourself in some way: not at all Total score: 16 Source: Developed by Drs. Pan Cassidy, Oralia Hawthorne, Tad Izaguirre and colleagues, with an educational wing from [employer]. Thrive Questionnaire Date Thrive assessed: 02/17/24 I am a: Patient What is your living situation today?: I have a steady place to live Within the past 12 months, did the food you bought not last and you didn't have the money to get more?: Sometimes True Within the past 12 months, did you worry whether your food would run out before you got money to buy more?: Sometimes True Do you have trouble paying for medicines?: No Do you have trouble getting transportation to medical appointments?: No Do you have trouble paying your heating and electricity bill?: No Do you have trouble taking care of your child, family member or friend?: No Do you have trouble with day-to-day activities such as bathing, preparing meals, shopping, managing finances, etc.?: Yes Are you currently unemployed and looking for a job?: No Are you interested in more education?: No Please select the resources that you would like help with: None Currently or been in a relationship where the following occur: No concerns reported THRIVE Score: 2 AUDIT C Alcohol Use Questionnaire (AUDIT-C) 1. How often do you have a drink containing alcohol?: Monthly or less 2. How many drinks containing alcohol do you have on a typical day when you are drinking?: 1 or 2 3. How often do you have six or more drinks on one occasion?: Never Total Score: 1 STORM-7 AMB Questionnaire STORM-7 Date STORM - 7 assessed: 02/17/24 Feeling nervous, anxious, or on edge: 3 = Nearly every day Not being able to stop or control worryin = Nearly every day Worrying too much about different things: 3 = Nearly every day Trouble relaxin = Nearly every day Being so restless that it is hard to sit still: 3 = Nearly every day Becoming easily annoyed or irritable: 3 = Nearly every day Feeling afraid as if something awful might happen: 3 = Nearly every day Total STORM-7 score (0-4 normal; 5-9 mild; 10-14 moderate; 15-21 severe): 21 Source: Developed by Drs. Pan Cassidy, Oralia Hawthorne, Tad Izaguirre and colleagues, with an educational wing from [employer]. Review of Systems Const Reports as per HPI Physical exam (Primary Care) Vital Signs: Last Vital Signs Pulse 71 02/17/24 10:29 BP 100/52 L 02/17/24 10:29 Pulse Ox 98 02/17/24 10:29 Oxygen Delivery Method Room Air 02/17/24 10:29 BMI result Body Mass Index 24.2 Tobacco/Smoking Status: Tobacco use Status Tobacco use date assessed 02/17/24 02/17/24 10:33 Patient Tobacco Use Status Never used Tobacco 02/17/24 10:33 e-Cigarette/Vaping Use Never Used 02/17/24 10:33 PHQ-9: PHQ-9 Score PHQ-9: Total score 16 02/17/24 10:47 Thrive Assessment: Date of Thrive Assessment Date Thrive assessed 02/17/24 02/17/24 10:33 Currently or been in a relationship where the following occur: No concerns reported Const General: cooperative Orientation/consciousness: patient oriented x3 Resp Effort & Inspection: normal respiratory effort Auscultation: clear to auscultation bilaterally Cardio Rate: regular rate Rhythm: regular rhythm Heart sounds: S1 normal heart sound present and S2 normal heart sound present Neuro General: patient oriented x3 Extrem Other: + phalens, + tinels to right, strong hand grasp without pain, no swelling to hand joints Psych Appearance: grossly normal Mental Status: mental status grossly normal Speech and movement: Normal speech and movement present Affect: normal affect Attitude: cooperative Thought process: Normal thought process present Thought content: Normal thought content present Insight: Good insight present (Psych) Judgement: Good judgement present (Psych) Assessment and Plan Assessment & Plan (1) Bilateral hand pain: Code(s): M79.641 - Pain in right hand; M79.642 - Pain in left hand Plan: XRs ordered, resubmitting EMG/nerve conduction testing (2) Bilateral hand numbness: Code(s): R20.0 - Anesthesia of skin Plan: XRs ordered, resubmitting EMG/nerve conduction testing Plan The patient agreed to the use of a medical instructor for this encounter. Scribed for GIANFRANCO Bowden-WENDY by Zamzam Faith medical instructor, on 02/17/2024 at 10:45 EST. Orders: Orders XR hand LT min 3V Today M79.641 - Pain in right hand, M79.642 - Pain in left hand, R20.0 - Anesthesia of skin XR hand RT min 3V Today M79.641 - Pain in right hand, M79.642 - Pain in left hand, R20.0 - Anesthesia of skin Coding Level of Care Code Est Pt Level 3 (12488) Diagnoses Bilateral hand pain M79.641; M79.642 Bilateral hand numbness R20.0
== END 2024-02-17 10:59 | disposition home or self-care (01) ==
PROVIDERS: PCP Nurse Practitioner Family; Visit Provider Nurse Practitioner Family
DX: M79.641 Pain in right hand (principal); M79.642 Pain in left hand; R20.0 Anesthesia of skin
CPT/HCPCS: 99213

== ENCOUNTER 2024-03-04 08:43 | Outpatient (REF) | payer OTHER, SELFPAY ==
--- NOTE | ~2024-03-04 | XR_ITS ---
EXAMINATION: XR HAND, BILATERAL CLINICAL INFORMATION: Bilateral hand pain COMPARISON: None. TECHNIQUE: 3 views of each hand FINDINGS: No fracture or malalignment. No periarticular osteopenia, erosions, or suspicious soft tissue calcifications. No degenerative findings. XR/XR hand RT min 3V IMPRESSION: Normal hands. Electronically signed by: Vamsi Blevins MD 03/10/2024 10:57 AM EDT
--- NOTE | ~2024-03-04 | XR_ITS ---
EXAMINATION: XR HAND, BILATERAL CLINICAL INFORMATION: Bilateral hand pain COMPARISON: None. TECHNIQUE: 3 views of each hand FINDINGS: No fracture or malalignment. No periarticular osteopenia, erosions, or suspicious soft tissue calcifications. No degenerative findings. XR/XR hand LT min 3V IMPRESSION: Normal hands. Electronically signed by: Vamsi Blevins MD 03/10/2024 10:57 AM EDT
== END 2024-03-04 08:44 | disposition home or self-care (01) ==
LOC: HO.HMGCX 08:43
PROVIDERS: PCP Nurse Practitioner Family; Visit Provider Nurse Practitioner Family
DX: M79.641 Pain in right hand (principal); M79.642 Pain in left hand; R20.0 Anesthesia of skin
CPT/HCPCS: 73130

== ENCOUNTER 2024-03-04 15:56 | Outpatient (AMB) | payer OTHER, SELFPAY ==
--- NOTE | 2024-03-04 15:58 | A.OFFPC_ITS ---
Vital Signs 03/04/24 16:01 Height 5 ft 6 in Weight 148 lb BMI 23.9 BP 110/62 Blood Pressure Location Rt brachial Position Sitting Pulse 70 Pulse Source Pulse Oximeter Pulse Oximetry (%) 98 Oxygen Delivery Method Room Air Intake Visit Reasons: Chest Pain~ Referral req Allergies Seasonal Allergies Allergy (Mild, Verified 03/04/24 16:02) watery eyes, sneezing Medication List - Last Reconciled 03/04/24 by REJI Martin cyclobenzaprine 10 mg PO TID PRN diclofenac sodium 50 mg PO Q12H PRN 30 days fluoxetine 20 mg PO DAILY ketoconazole 2% 1 appl topical DAILY Tobacco use date assessed: 02/17/24 Dental Screening Dental Screen Date: 02/17/24 HPI Chest Pain~ Referral req HPI Details Pt had an EKG at an outside facility which reportedly showed pulmonary disease. He does report intermittent tachycardia, palpitations, and left chest discomfort. He reports the discomfort does not radiate and lasts seconds. EKG showed sinus arrhythmia. Will order holter and echo. [place]. Will order PFT testing. Denies any current chest pain, increased shortness of breath, and dizziness. [facility] Medical History (Updated 03/04/24 @ 17:10 by REJI Martin) Major depression Insomnia PTSD (post-traumatic stress disorder) Plantar fasciitis, bilateral Achilles tendinosis of both ankles Plantar fascial fibromatosis Family History Father Substance use disorder Maternal Grandfather Substance use disorder Maternal Grandmother Substance use disorder Maternal Aunt Substance use disorder Maternal Uncle Substance use disorder Social History Housing: Apartment Patient Tobacco Use Status: Never used Tobacco e-Cigarette/Vaping Use: Never Used Second Hand Smoke Exposure: Yes service: Yes Current occupational status: employed Current occupation: [employer] Current occupational exposures/hazards: Yes Cognitive needs: No Hearing needs: No Vision needs: No Questionnaire PHQ-9 Over the last 2 weeks, how often have you been bothered by any of the following problems? 1. Little interest or pleasure in doing things: nearly every day 2. Feeling down, depressed, or hopeless: nearly every day 3. Trouble falling or staying asleep, or sleeping too much: nearly every day 4. Feeling tired or having little energy: nearly every day 5. Poor appetite or overeating: more than half the days 6. Feeling bad about yourself - or that you are a failure or have let yourself or your family down: not at all 7. Trouble concentrating on things, such as reading the newspaper or watching television: several days 8. Moving or speaking so slowly that other people could have noticed. Or the opposite - being so fidgety or restless that you have been moving around a lot more than usual: several days 9. Thoughts that you would be better off or of hurting yourself in some way: not at all Total score: 16 Source: Developed by Drs. Pan Cassidy, Oralia Hawthorne, Tad Izaguirre and colleagues, with an educational wing from [employer]. Thrive Questionnaire Date Thrive assessed: 02/17/24 I am a: Patient What is your living situation today?: I have a steady place to live Within the past 12 months, did the food you bought not last and you didn't have the money to get more?: Sometimes True Within the past 12 months, did you worry whether your food would run out before you got money to buy more?: Sometimes True Do you have trouble paying for medicines?: No Do you have trouble getting transportation to medical appointments?: No Do you have trouble paying your heating and electricity bill?: No Do you have trouble taking care of your child, family member or friend?: No Do you have trouble with day-to-day activities such as bathing, preparing meals, shopping, managing finances, etc.?: Yes Are you currently unemployed and looking for a job?: No Are you interested in more education?: No Please select the resources that you would like help with: None Currently or been in a relationship where the following occur: No concerns reported THRIVE Score: 2 AUDIT C Alcohol Use Questionnaire (AUDIT-C) 1. How often do you have a drink containing alcohol?: Monthly or less 2. How many drinks containing alcohol do you have on a typical day when you are drinking?: 1 or 2 3. How often do you have six or more drinks on one occasion?: Never Total Score: 1 STORM-7 AMB Questionnaire STORM-7 Date STORM - 7 assessed: 02/17/24 Feeling nervous, anxious, or on edge: 3 = Nearly every day Not being able to stop or control worryin = Nearly every day Worrying too much about different things: 3 = Nearly every day Trouble relaxin = Nearly every day Being so restless that it is hard to sit still: 3 = Nearly every day Becoming easily annoyed or irritable: 3 = Nearly every day Feeling afraid as if something awful might happen: 3 = Nearly every day Total STORM-7 score (0-4 normal; 5-9 mild; 10-14 moderate; 15-21 severe): 21 Source: Developed by Drs. Pan Cassidy, Oralia Hawthorne, Tad Izaguirre and colleagues, with an educational wing from [employer]. Review of Systems Const Reports as per HPI Physical exam (Primary Care) Vital Signs: Last Vital Signs Pulse 70 03/04/24 16:01 BP 110/62 03/04/24 16:01 Pulse Ox 98 03/04/24 16:01 Oxygen Delivery Method Room Air 03/04/24 16:01 BMI result Body Mass Index 23.9 Tobacco/Smoking Status: Tobacco use Status Tobacco use date assessed 02/17/24 03/04/24 16:04 Patient Tobacco Use Status Never used Tobacco 03/04/24 16:04 e-Cigarette/Vaping Use Never Used 03/04/24 16:04 PHQ-9: PHQ-9 Score PHQ-9: Total score 16 03/04/24 16:34 Thrive Assessment: Date of Thrive Assessment Date Thrive assessed 02/17/24 03/04/24 16:04 Currently or been in a relationship where the following occur: No concerns reported Const General: cooperative Orientation/consciousness: patient oriented x3 Resp Effort & Inspection: normal respiratory effort Auscultation: clear to auscultation bilaterally Cardio Rate: regular rate Heart sounds: S1 normal heart sound present, S2 normal heart sound present and no murmurs Neuro General: patient oriented x3 Psych Appearance: grossly normal Mental Status: mental status grossly normal Speech and movement: Normal speech and movement present Affect: normal affect Attitude: cooperative Thought process: Normal thought process present Thought content: Normal thought content present Insight: Good insight present (Psych) Judgement: Good judgement present (Psych) Assessment and Plan Assessment & Plan (1) Palpitations: Code(s): R00.2 - Palpitations Plan: echo and holter ordered (2) Exposure to toxic waste: Code(s): Z77.098 - Contact with and (suspected) exposure to other hazardous, chiefly nonmedicinal, chemicals Plan: pft ordered Plan The patient agreed to the use of a medical billing service for this encounter. Scribed for REJI Bowden by Zamzam Faith medical billing service, on 03/04/2024 at 16:35 EST. Orders: Orders CA echo transthoracic complete Today R00.2 - Palpitations AMB EKG-In Office Today R00.2 - Palpitations PFT pulmonary function test Today R00.2 - Palpitations, Z77.098 - Contact with and (suspected) exposure to other hazardous, chiefly nonmedicinal, chemicals ECG 3 day holter monitor Today R00.2 - Palpitations Coding Level of Care Code Est Pt Level 3 (35125) Diagnoses Palpitations R00.2 Exposure to toxic waste Z77.098
[2024-03-04 16:01] VITALS: BP 110/62; PULSE 70; O2SAT 98; BMI 23.9
== END 2024-03-04 17:07 | disposition home or self-care (01) ==
PROVIDERS: PCP Nurse Practitioner Family; Visit Provider Nurse Practitioner Family
DX: R00.2 Palpitations (principal); Z77.098 Contact with and (suspected) exposure to other hazardous, chiefly nonmedicinal, chemicals
CPT/HCPCS: 99213

== ENCOUNTER → 2024-03-29 09:53 | Outpatient (REF) | payer OTHER, SELFPAY ==
--- NOTE | 2024-03-29 09:57 | HM_ITS ---
* Total monitoring time 3 days. * Underlying rhythm is sinus with an average rate of 75/Min. * No significant supraventricular or ventricular ectopy. * No significant arrhythmias. * No significant pauses or high-grade AV blocks. * No patient markers. Diary not submitted. MTDD
--- NOTE | 2024-03-29 09:57 | CA_ITS ---
Transthoracic Echocardiogram Patient (Last, First, Middle): Albaro Jean N Gender: Male Date of : 1995 Age: 28 Procedure Date: 03/29/2024 Procedure Type: Transthoracic Echocardiogram Location: OP Height: 167.64 cm Weight: 68.04 kg BSA: 1.77 m2 Heart Rate: bpm BP: 104 / 60 mmHg [employer] Finishing Supervisor: LORNA Referring MD: Jayme Burrell [facility]- Food Preparation Worker: Mich Leon MD Symptoms: R00.2 - Palpitations Study Quality: Adequate ECG Rhythm: Sinus Conclusions: - Normal study Findings Left Ventricle Normal left ventricular size, thickness, and systolic function. The visually estimated ejection fraction is between 55-60%. Spectral Doppler is indicative of a normal filling pattern. Right Ventricle Normal right ventricular cavity size and systolic function. Atria Both atria are normal in size. There is no evidence of interatrial shunt. Aortic Valve Normal aortic valve structure and function. There is no aortic valve stenosis. There is no aortic valve regurgitation. Mitral Valve Normal mitral valve structure and function. There is no mitral valve regurgitation. There is no mitral valve stenosis. Pulmonic Valve The pulmonic valve is likely normal. Tricuspid Valve Normal tricuspid valve structure. There is trace tricuspid valve regurgitation. The right ventricular systolic pressure is normal. The right ventricular systolic pressure is 11 mmHg. Normal right atrial pressure. There is no evidence of pulmonary hypertension. Great Vessels All visible segments of the aorta are normal in size. The pulmonary artery was not well visualized. Venous The inferior vena cava is normal in size and collapses greater than 50% with inspiration. Pericardium/Pleural There is no evidence of pericardial effusion. Prior Study Comparison No prior study available for comparison. Measurements 2D Linear Measurements IVSd: 0.69 0.6-0.9/0.6-1.0 cm LVIDd: 5.17 3.9-5.3/4.2-5.9 cm LVIDd Index: 2.92 2.4-3.2/2.2-3.1 cm/m2 LVIDs: 3.08 2.0-3.6 cm LVPWd: 0.76 0.7-1.1 cm LA Diam: 2.50 2.7-3.8/3.0-4.0 cm LAIDs Index: 1.41 1.5-2.3 cm/m2 LV Mass: 157.19 67-162/88-224 g LV Mass Index: 88.81 43-95/49-115 g/m2 LVOT Diam: 2.00 3.0+(-)1.3 cm 2D Systolic Function EF 4C: 60.40 >55% EF 2C: 59.90 >55% EF BiP: 57.50 >55% Mitral Valve MV Pk E: 0.64 MV PK A: 0.33 MV Decel Time: 226.00 E/A: 1.90 E'Lateral: 14.80 E'Medial: 9.57 E/E' Med: 6.70 E/E' Lat: 4.30 PHT: 66.00 MVA PHT: 3.33 Decel [place]: 2.83 Aortic Valve AoV Pk Nelson: 1.03 AoV Mn Nelson: 0.72 AoV VTI: 0.22 AoV Pk Grad: 4.00 Aov Mn Grad: 2.00 MICHELLE Cont.VTI: 2.42 LVOT LVOT Pk Nelson: 0.81 LVOT Mn Nelson: 0.51 LVOT VTI: 0.17 LVOT Pk Grad: 3.00 LVOT Mn Grad: 1.00 LVOT Diam: 2.00 LVOT Area: 3.14 Diastolic Function MV Pk E: 0.64 MV Pk A: 0.33 E/A: 1.90 E'Medial: 9.57 E/E' Med: 6.70 E' Laterial: 14.80 E/E' Lat: 4.30 Right Ventricle TAPSE (mm): 21.90 TVS' Nelson: 14.70 Tricuspid Valve TR Pk Nelson: 1.45 TR Pk Grad: 8.00 RA Press: 3.00 RVSP: 11.00 Great Vessels Aorta Sinus of Valsalva: 2.89 2.0-3.[address] [place]: 2.27 1.7-3.4 cm Ao Asc: 2.40 2.1-3.4 cm Updated in Other Vendor System with Status of Final Mich Leon MD electronically signed on 03/29/2024 12:32:49 PM with status of Final
== END ==
LOC: HO.CARD 09:53
PROVIDERS: PCP Nurse Practitioner Family; Visit Provider Nurse Practitioner Family
DX: R00.2 Palpitations (principal)
CPT/HCPCS: 93242; 93306

== ENCOUNTER → 2024-03-29 09:57 | Outpatient (BNV) | payer OTHER, SELFPAY | PROVIDERS: PCP Nurse Practitioner Family; Visit Provider Internal Medicine Cardiovascular Disease | DX: R00.0 Tachycardia, unspecified (principal) | CPT/HCPCS: 93244; 93306 ==

== ENCOUNTER 2024-05-05 10:13 | Outpatient (REF) | payer OTHER, SELFPAY | END 2024-05-05 10:14 | disposition home or self-care (01) | LOC: HO.HMGCX 10:13 | PROVIDERS: PCP Nurse Practitioner Family; Visit Provider Nurse Practitioner Family | DX: M89.8X1 Other specified disorders of bone, shoulder (principal); M79.641 Pain in right hand; M79.642 Pain in left hand; R29.898 Other symptoms and signs involving the musculoskeletal system | CPT/HCPCS: 73000; 99212 ==

== ENCOUNTER 2024-05-05 10:13 | Outpatient (AMB) | payer OTHER, SELFPAY ==
--- NOTE | 2024-05-05 10:19 | MHC.PC.OV ---
Vital Signs 05/05/24 10:20 Height 5 ft 6 in Weight 155 lb BMI 25.0 BP 112/70 Blood Pressure Location Rt brachial Position Sitting Pulse 74 Pulse Source Pulse Oximeter Pulse Oximetry (%) 98 Oxygen Delivery Method Room Air Intake Visit Reasons: 3 mon f/u Intake Note: pt is here for 3 month follow up Allergies Seasonal Allergies Allergy (Mild, Verified 05/05/24 10:22) watery eyes, sneezing Tobacco use date assessed: 02/17/24 Dental Screening Dental Screen Date: 02/17/24 HPI 3 mon f/u HPI Details Pt c/o pain to his right mid clavicle. He reports that there is not one event that caused this. Will order XR. Pt does carry heavy weight x 8 years, using a large chest protector. Pt reports weak hand grasp on the left. He reports using a scanner with his left hand for 8 years in the . Will refer to OT (XR neg). Denies fever, chills, and dizziness. FOR[facility]LY [facility] Medical History Plantar fasciitis Achilles tendonitis Major depression Insomnia PTSD (post-traumatic stress disorder) Plantar fasciitis, bilateral Achilles tendinosis of both ankles Plantar fascial fibromatosis Family History Father Substance use disorder Maternal Grandfather Substance use disorder Maternal Grandmother Substance use disorder Maternal Aunt Substance use disorder Maternal Uncle Substance use disorder Social History Housing: Apartment Patient Tobacco Use Status: Never used Tobacco e-Cigarette/Vaping Use: Never Used Second Hand Smoke Exposure: Yes service: Yes Current occupational status: employed Current occupation: [employer] Current occupational exposures/hazards: Yes Cognitive needs: No Hearing needs: No Vision needs: No Questionnaire Thrive Questionnaire Date Thrive assessed: 02/17/24 I am a: Patient What is your living situation today?: I have a steady place to live Within the past 12 months, did the food you bought not last and you didn't have the money to get more?: Sometimes True Within the past 12 months, did you worry whether your food would run out before you got money to buy more?: Sometimes True Do you have trouble paying for medicines?: No Do you have trouble getting transportation to medical appointments?: No Do you have trouble paying your heating and electricity bill?: No Do you have trouble taking care of your child, family member or friend?: No Do you have trouble with day-to-day activities such as bathing, preparing meals, shopping, managing finances, etc.?: Yes Are you currently unemployed and looking for a job?: No Are you interested in more education?: No Please select the resources that you would like help with: None Currently or been in a relationship where the following occur: No concerns reported THRIVE Score: 2 STORM-7 AMB Questionnaire STORM-7 Date STORM - 7 assessed: 02/17/24 Source: Developed by Drs. Pan Cassidy, Oralia Hawthorne, Tad Izaguirre and colleagues, with an educational wing from [employer]. Review of Systems Const Reports as per HPI Physical exam (Primary Care) Vital Signs: Last Vital Signs Pulse 74 05/05/24 10:20 BP 112/70 05/05/24 10:20 Pulse Ox 98 05/05/24 10:20 Oxygen Delivery Method Room Air 05/05/24 10:20 BMI result Body Mass Index 25.0 Tobacco/Smoking Status: Tobacco use Status Tobacco use date assessed 02/17/24 05/05/24 10:23 Patient Tobacco Use Status Never used Tobacco 05/05/24 10:23 e-Cigarette/Vaping Use Never Used 05/05/24 10:23 Thrive Assessment: Date of Thrive Assessment Date Thrive assessed 02/17/24 05/05/24 10:23 Currently or been in a relationship where the following occur: No concerns reported Const General: cooperative Orientation/consciousness: patient oriented x3 Resp Effort & Inspection: normal respiratory effort Auscultation: clear to auscultation bilaterally Cardio Rate: regular rate Rhythm: regular rhythm Heart sounds: S1 normal heart sound present, S2 normal heart sound present and no murmurs Neuro General: patient oriented x3 Extrem Other: tenderness with palpation of right clavicle. Tenderness exacerbated with elevation of LUE. Psych Appearance: grossly normal Mental Status: mental status grossly normal Speech and movement: Normal speech and movement present Affect: normal affect Attitude: cooperative Thought process: Normal thought process present Thought content: Normal thought content present Insight: Good insight present (Psych) Judgement: Good judgement present (Psych) Coding Level of Care Code Est Pt Level 3 (57731) Diagnoses Pain of right clavicle M89.8X1 Bilateral hand pain M79.641; M79.642 Weakness of left hand R29.898 Assessment & Plan Assessment & Plan (1) Pain of right clavicle: Code(s): M89.8X1 - Other specified disorders of bone, shoulder Category: Medical Plan: XR ordered (2) Bilateral hand pain: Code(s): M79.641 - Pain in right hand; M79.642 - Pain in left hand Category: Medical Plan: Referred to OT, for left hand pain (weakness with hand grasp) (3) Weakness of left hand: Code(s): R29.898 - Other symptoms and signs involving the musculoskeletal system Category: Medical Plan: Referred to OT Plan The patient agreed to the use of a certified medical biller for this encounter. Scribed for GIANFRANCO Bowden-BC by Zamzam Faith certified medical biller, on 05/05/2024 at 10:35 EST. Orders: Orders XR clavicle RT Today M89.8X1 - Other specified disorders of bone, shoulder OT Evaluation and Treatment Today R29.898 - Other symptoms and signs involving the musculoskeletal system
[2024-05-05 10:20] VITALS: BP 112/70; PULSE 74; O2SAT 98; BMI 25.0
== END 2024-05-05 10:50 | disposition home or self-care (01) ==
PROVIDERS: PCP Nurse Practitioner Family; Visit Provider Nurse Practitioner Family
DX: M89.8X1 Other specified disorders of bone, shoulder (principal); M79.641 Pain in right hand; M79.642 Pain in left hand; R29.898 Other symptoms and signs involving the musculoskeletal system

== ENCOUNTER 2024-07-15 11:28 | Outpatient (RCR) | payer OTHER, SELFPAY ==
--- NOTE | 2024-06-08 13:55 | MHC.OT.OEV ---
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 Patient reports grabbing groceries, washing the dishes, typing on the computer at work. Patients main task at work is typing on a computer which severely exacerbates his symptoms. Patient has two children that he he struggles to car pick up driver and play with due to the pain. Patient reports he was supposed to get a nerve conduction study done but PCP hasn't sent referral yet. Significant Medical History: Precautions/Contraindications: none Patient Goals: Get back to pain free work tasks Hand Dominance: Right Observations: QuickDASH Score: 42.5 Prior Level of Function and Occupation Self Care, Employment, Leisure: Independent prior, no pain or difficulty with ADL/IADL Leisure; working on cars reading Living Situation, Family and/or Social Support: with 2 kids; lives with and kids Current Level of Function and Occupation Self Care, Employment, Leisure: Can do things but its very painful; IND but w/pain Sleep: (-) Driving: (+) Pain with gripping steering wheel Vision: Balance: Pain Assessment Pain Score: 5 Pain Scale Used: Numeric (0 - 10) Pain Location and Description: sharp throbbing pain knuckles down, bilaterally Can get up to an 8 with strength gripping or overwork Aggravating Factors: Worst pain in gripping Alleviating Factors: Warm water self massage helps Very painful pt uses ice Skin and Soft Tissue Assessment Skin and Soft Tissue: Comments: Skin intact WFL Nerve assessment Ulnar Nerve: Median Nerve: Radial Nerve: Comments: Sensory Assessment Temperature: Light Touch: Proprioception: Vibration: Comments: Denies numbness and tingling Edema Assessment Upper Extremity: Lower Extremity: Comments: No swelling noted Dexterity Assessment Dexterity: Comments: FDT (R) 21.2 (L) 16.8 Special Tests Comments: phalens (-) straight arm supervisor fiber locking strength (-) AROM(PROM) Strength Cervical Cervical Flexion: Cervical Extension: Cervical Lateral Flexion: Cervical Rotation: Comments: WFL Shoulder Flexion: Extension: Abduction: Internal Rotation: External Rotation: Comments: WFL Flexion: Extension: Abduction: Internal Rotation: External Rotation: Comments: Elbow Flexion: Extension: Pronation: Supination: Comments: WFL Flexion: Extension: Pronation: Supination: Comments: Wrist Flexion: Extension: Ulnar Deviation: Radial Deviation: Comments: WFL Flexion: Extension: Ulnar Deviation: Radial Deviation: Comments: Thumb Thumb CMC Flexion: Thumb MCP Flexion: Thumb IP Flexion: Radial Abduction: Palmar Abduction: [place] ([place] 0-10): 10 Comments: Digits Index MCP: PIP: DIP: Long MCP: PIP: DIP: Ring MCP: PIP: DIP: Small MCP: PIP: DIP: Comments: WFL makes full composite pain free fist Gross Grasp: (L) 75lbs (R) 60lbs Lateral Pinch: (L) 20lbs (R) 20lbs Two-Point Pinch: (L) 10lbs (R) 10lbs Three-Jaw Willis: (L) 14lbs (R) 14lbs Comments: Patient Education Primary Language: [place] Cutter Operator Required: No Current Knowledge: Understands information with skills for self-management Teaching Method: Demonstration Handouts Verbal Education Needs Identified on Evaluation: ADL's Disease Information Equipment Use Exercise Pain Safety How did patient/family demonstrate learning? Patient demonstrates Patient verbalizes Barriers to Learning: None Readiness for Learning: Accepting Who was educated? Patient Comments: Plan of Care Assessment: 28 y/o (M) presents with bilateral hand pain that starts at his knuckles and radiates down into his hand. Patient demonstrates full AROM but has pain with repetitive gripping tasks and typing which is a large part of his work dutys. Patient had negative proactive testing for tennis elbow and carpal tunnel. Patient supervisor fiber locking strength slightly decreased and did not evoke pain during testing. Patient would benefit from skilled OT services to decrease overall pain and improve function of the bilateral hands. STG Duration: 2 weeks Short Term Goals: Patient will be IND and compliant w/HEP Patient will report 2/10 resting hand pain Patient will be IND w/self massage LTG Duration: 4 weeks Edge Plugger Goals: Patient will demonstrate 70lbs of supervisor fiber locking strength in the (R) hand Patient will engage in work related tasks with no report of pain Patient will implement ergonomic work station changes to improve work posture Frequency and Duration: The patient will be seen 2x week 4 weeks Treatment Plan: Therapeutic Exercise Therapeutic Activity Home Exercise Program Patient Education Edema Control ADL Training Ultrasound NMES Iontophoresis Paraffin Fluidotherapy MHP Cold Packs Joint Mobilization Soft Tissue Mobilization Kinesiotaping Skilled OT Electronically Signed By: Rose Scruggs OT/s Reviewed/agree with student documentation: Therapist: Ramila Wing, OTR/L, CLT Please sign and return to therapist, Thank you for your referral.
--- NOTE | 2024-07-15 12:56 | MHC.OT.DC ---
[address] [phone] F: [phone] Occupational Therapy Discharge Note Patient Name: Albaro Jean Provider: Jayme Burrell Diagnosis: (L) hand weakness Date of Surgery: Date of Evaluation: 06/03/24 Date of Discharge: Treatments to Date: 7 Cancellations to Date: No Shows to Date: Discharge Status: Achieved Goals Improved Function Independent with HEP Discharge Summary: Patient is d/c'd from skilled OT as she has achieved his maximal potential during therapy; patient is in agreement with this plan. He reports 0/10 pain and is (I) with HEP achieving his base line. Thank you for your referral, he was a pleasure to work with. Electronically Signed By: DADA Estrada CLT Reviewed/agree with student documentation: Therapist: DADA Estrada CLT Please Sign and return to therapist, thank you for your referral.
== END 2024-08-05 14:43 | disposition home or self-care (01) ==
LOC: HO.OT 11:28
PROVIDERS: PCP Nurse Practitioner Family; Visit Provider Nurse Practitioner Family
DX: R29.898 Other symptoms and signs involving the musculoskeletal system (principal)
CPT/HCPCS: 97110; 97140; 97165